=== PATIENT | female | born 1930 ===

== ENCOUNTER 2018-01-13 19:26 | Inpatient (IN) | payer MEDICAID, MEDICARE ==
[~2018-01-13] VITALS: Ht 165.1 cm; Wt 61.2 kg
[2018-01-13 20:28] LABS: BASOPHILS # (AUTO) 0.1 K/uL (0.0-8.0); BASOPHILS % (AUTO) 0.5 % (0.0-2.0); EOSINOPHILS # (AUTO) 0.1 K/uL (0.0-0.7); EOSINOPHILS % (AUTO) 0.6 % (0.0-7.0); HEMATOCRIT 34.2 % (31.2-41.9); HEMOGLOBIN 11.3 g/dL (10.9-14.3); LYMPHOCYTES # (AUTO) 1.2 K/uL (20.0-40.0); LYMPHOCYTES % (AUTO) 6.3 % (20.5-51.5); MEAN CORPUSCULAR HEMOGLOBIN 29.1 uug (24.7-32.8); MEAN CORPUSCULAR HGB CONC 33 g/dL (32.3-35.6); MEAN CORPUSCULAR VOLUME 88.4 fL (75.5-95.3); MONOCYTES # (AUTO) 1.1 K/uL (2.0-10.0); MONOCYTES % (AUTO) 6.1 % (0.0-11.0); NEUTROPHILS % (AUTO) 86.5 % (38.5-71.5); PLATELET COUNT (AUTO) 125 K/uL (179-408); RED BLOOD CELL COUNT(AUTO) 3.87 MIL/uL (3.63-4.92); WHITE BLOOD COUNT (AUTO) 18.5 K/uL (3.8-11.8)
[2018-01-13 20:34] LABS: CARBON DIOXIDE 29 mmol/L (21-32); CHLORIDE 109 mmol/L (98-107); CREATININE 0.6 mg/dL (0.6-1.3); GLUCOSE 148 mg/dL (74-106); POTASSIUM 3.5 mmol/L (3.5-5.1); UREA NITROGEN, BLOOD 23 mg/dL (7-18)
[2018-01-13 20:40] LABS: ALANINE AMINOTRANSFERASE 10 U/L (14-59); ALKALINE PHOSPHATASE 74 U/L (50-136); ASPARTATE AMINOTRANSFERASE 12 U/L (15-37); BILIRUBIN,DIRECT 0.1 mg/dL (0.0-0.2); BILIRUBIN,TOTAL 0.3 mg/dL (0.2-1.0); TOTAL PROTEIN, SERUM 4.5 g/dL (6.4-8.2)
[2018-01-13 20:59] LABS: *BILIRUBIN,URIN NEGATIVE (NEGATIVE); *BLOOD, URINE 2+ (NEGATIVE); *COLOR,URINE DARK YELLOW (YELLOW); *KETONES,URINE NEGATIVE (NEGATIVE); *PROTEIN,URINE 2+ (NEGATIVE); *UROBILINOGEN,URINE 0.2 E.U./dl (NORMAL); LEUKOCYTE ESTERASE ,URINE 1+ (NEGATIVE); NITRITE, URINE POSITIVE (NEGATIVE); UGLUCOSE NEGATIVE (NEGATIVE)
[2018-01-13 21:01] LABS: BAND % (MANUAL) 6 % (0-10); LYMPHOCYTES % (MANUAL) 5 % (20-40); MONOCYTES % (MANUAL) 5 % (2-10); NEUTROPHILS % (MANUAL) 82 % (42-75)
[2018-01-13 21:02] LABS: EOSINOPHILS % (MANUAL) 1 % (0-8); METAMYELOCYTES % 1 % (0-1)
[2018-01-13 21:09] LABS: *CLARITY,URINE CLOUDY (CLEAR)
[2018-01-13 21:10] LABS: BACTERIA,URINE FEW /HPF (NONE SEEN); SQUAMOUS EPITHELIAL CELL,UR FEW /HPF (NONE SEEN); WBC,URINE 50-80 /HPF (0-3); YEAST,URINE MANY /HPF (NONE SEEN)
[2018-01-13 21:11] LABS: CALCIUM OXALATE CRYSTALS,UR MODERATE /HPF (NONE SEEN)
[2018-01-13 21:12] LABS: MUCUS,URINE MODERATE /LPF (0-FEW)
[2018-01-13] MEDS ORDERED: IV NORMAL SALINE 1000 ML BAG IV ONE (21:15)
[2018-01-13] MEDS ORDERED: ALBU2.5V13 IH (21:15)
[2018-01-13] MEDS ORDERED: DIGO125T5 PO (21:15)
[2018-01-13] MEDS ORDERED: RIVA10TA PO (21:15)
[2018-01-13] MEDS ORDERED: PANT40TA4 PO (21:15)
[2018-01-13] MEDS ORDERED: IPRA0.2S6 NEB (21:15)
[2018-01-13] MEDS ORDERED: VANC125C4 PO (21:15)
[2018-01-13 21:28] LABS: ABG BASE EXCESS 1.9 mmol/L; ABG HCO3 26.5 mmol/L; ABG PCO2 41.2 mmHg (35.0-45.0); ABG PH 7.426 (7.350-7.450); ABG PO2 49.5 mmHg (75.0-100.0); ABG SITE LEFT RADIAL; ABG TOTAL HEMOGLOBIN 12.1 G/dL (12.0-16.0); COHb 1.2 % (0.5-1.5); MetHb 0.2 % (0.0-1.5); O2Hb 86.3 % (94.0-97.0); VENT MODE Room Air
[2018-01-13] MEDS ORDERED: CEFTRIAXONE 1 G VIAL ONE (21:29)
[2018-01-13] MEDS ORDERED: CEFTRIAXONE 2 G in IV DEXTROSE 5% 100 ML IV ONE (21:30)
[2018-01-13] MEDS ORDERED: MULT1TAB73 PO (21:53)
[2018-01-13] MEDS ORDERED: ASCO500C18 PO (21:53)
[2018-01-13] MEDS ORDERED: CRAN425C6 PO (21:53)
[2018-01-13] MEDS ORDERED: ZINC220C8 PO (21:53)
[2018-01-13] MEDS ORDERED: prostat PO (21:53)
[2018-01-13] MEDS ORDERED: ACET325T53 PO (21:53)
[2018-01-13] MEDS ORDERED: METR500P4 IV (23:06)
[2018-01-13] MEDS ORDERED: HYDROCODONE/APAP 5-325MG TABLET PO PRN (23:15)
[2018-01-13] MEDS ORDERED: ACETAMINOPHEN 325 MG TABLET PO PRN (23:15)
[2018-01-13] MEDS ORDERED: MAGNESIUM HYDROXIDE 30 ML LIQUID UDC PO PRN (23:15)
[2018-01-13] MEDS ORDERED: ZOLPIDEM 5 MG TABLET PO PRN (23:15)
[2018-01-13] MEDS ORDERED: ONDANSETRON 4 MG/2 ML VIAL IV PRN (23:15)
[2018-01-13] MEDS ORDERED: FUROSEMIDE 40 MG/4 ML VIAL IV ONE (23:45)
[2018-01-14] MEDS: ALBUTEROL SULFATE 2.5 MG/ 0.5 ML NEBU IH SCH ×7 (00:35→23:02)
[2018-01-14] MEDS: IPRATROPIUM BROMIDE 0.5 MG/2.5 ML NEBU NEB SCH ×7 (00:35→23:01)
[2018-01-14 00:36] VITALS: BP 148/64
[2018-01-14] MEDS ORDERED: METRONIDAZOLE 500 MG/NS 100ML 100 ML IV ONE (00:50)
[2018-01-14 04:56] LABS: BASOPHILS # (AUTO) 0.1 K/uL (0.0-8.0); BASOPHILS % (AUTO) 0.3 % (0.0-2.0); EOSINOPHILS # (AUTO) 0.2 K/uL (0.0-0.7); EOSINOPHILS % (AUTO) 0.9 % (0.0-7.0); HEMATOCRIT 37.1 % (31.2-41.9); HEMOGLOBIN 11.9 g/dL (10.9-14.3); LYMPHOCYTES # (AUTO) 1.4 K/uL (20.0-40.0); LYMPHOCYTES % (AUTO) 7.1 % (20.5-51.5); MEAN CORPUSCULAR HEMOGLOBIN 28.7 uug (24.7-32.8); MEAN CORPUSCULAR HGB CONC 32 g/dL (32.3-35.6); MEAN CORPUSCULAR VOLUME 89.2 fL (75.5-95.3); MONOCYTES # (AUTO) 1.1 K/uL (2.0-10.0); MONOCYTES % (AUTO) 5.7 % (0.0-11.0); PLATELET COUNT (AUTO) 105 K/uL (179-408); RED BLOOD CELL COUNT(AUTO) 4.15 MIL/uL (3.63-4.92); WHITE BLOOD COUNT (AUTO) 19.7 K/uL (3.8-11.8)
[2018-01-14 05:05] VITALS: BP 158/55
[2018-01-14] MEDS: METRONIDAZOLE 500 MG/NS 100ML 500 MG in PREMIXED 1 EACH IV SCH ×3 (05:15→21:01)
[2018-01-14] MEDS: VANCOMYCIN FOR PO/GT/NG USE PO SCH ×5 (05:47→23:11)
[2018-01-14] MEDS ORDERED: METRONIDAZOLE 500 MG/NS 100 ML PIGGYBACK IV SCH (06:00)
[2018-01-14 06:11] LABS: ABG BASE EXCESS 2.2 mmol/L; ABG HCO3 27.1 mmol/L; ABG PCO2 43.1 mmHg (35.0-45.0); ABG PH 7.416 (7.350-7.450); ABG PO2 72.2 mmHg (75.0-100.0); ABG SITE LEFT RADIAL; ABG TOTAL HEMOGLOBIN 11.5 G/dL (12.0-16.0); COHb 1.4 % (0.5-1.5); MetHb 0.2 % (0.0-1.5); VENT MODE Nasal Cannula
[2018-01-14 07:42] LABS: CARBON DIOXIDE 26 mmol/L (21-32); CHLORIDE 108 mmol/L (98-107); CHOLESTEROL 89 mg/dL (<200); CREATININE 0.5 mg/dL (0.6-1.3); GLUCOSE 103 mg/dL (74-106); HDL CHOLESTEROL 45 mg/dL (40-60); PHOSPHOROUS 1.7 mg/dL (2.5-4.9); POTASSIUM 3.5 mmol/L (3.5-5.1); TRIGLYCERIDES 51 MG/DL (30-150); UREA NITROGEN, BLOOD 20 mg/dL (7-18)
[2018-01-14] MEDS ORDERED: DIGOXIN 125 MCG TABLET PO SCH (09:00)
[2018-01-14] MEDS ORDERED: PANTOPRAZOLE SODIUM 40 MG TABLET.DR PO SCH (09:00)
[2018-01-14] MEDS ORDERED: PANTOPRAZOLE SODIUM 40 MG VIAL IV SCH (09:00)
[2018-01-14] MEDS ORDERED: RIVAROXABAN 10 MG TABLET PO SCH (09:00)
[2018-01-14] MEDS: ASCORBIC ACID 500 MG TABLET PO SCH (09:19)
[2018-01-14] MEDS: MULTIVITAMINS,THERAPEUTIC TABLET PO SCH (09:19)
[2018-01-14] MEDS: ZINC SULFATE 220 MG CAPSULE PO SCH (09:20)
[2018-01-14] MEDS: Z GUARD REMEDY PASTE 57 GM TUBE TOP PRN (09:21)
[2018-01-14 11:12] VITALS: BP 148/61
[2018-01-14] MEDS ORDERED: MAGNESIUM SULFATE/D5W 100 ML IV SCH (11:15)
[2018-01-14] MEDS: NEUTRA PHOS PACKET PO SCH ×2 (12:15→17:15)
[2018-01-14 15:32] VITALS: BP 164/52
[2018-01-14] MEDS: AMIODARONE HCL 200 MG TABLET PO SCH (17:14)
[2018-01-14] MEDS: RIVAROXABAN 10 MG TABLET PO SCH (18:05)
[2018-01-14] MEDS: ALBUMIN HUMAN 25% 25 GM in PREMIXED 1 EACH IV SCH ×2 (18:06→23:13)
[2018-01-14] MEDS: CEFTRIAXONE 1 G in IV DEXTROSE 5% 50 ML IV SCH (20:17)
[2018-01-14] MEDS: NYSTATIN POWDER 15 GM BOTTLE TOP SCH (20:40)
[2018-01-14] MEDS ORDERED: FUROSEMIDE 20 MG/2 ML VIAL IV SCH (21:00)
[2018-01-14 21:08] VITALS: BP 137/61
[2018-01-15] MEDS: IPRATROPIUM BROMIDE 0.5 MG/2.5 ML NEBU NEB SCH ×6 (03:02→23:37)
[2018-01-15] MEDS: ALBUTEROL SULFATE 2.5 MG/ 0.5 ML NEBU IH SCH ×6 (03:02→23:37)
[2018-01-15] MEDS: METRONIDAZOLE 500 MG/NS 100ML 500 MG in PREMIXED 1 EACH IV SCH ×3 (05:00→21:54)
[2018-01-15] MEDS: VANCOMYCIN FOR PO/GT/NG USE PO SCH ×3 (05:01→17:11)
[2018-01-15] MEDS: ALBUMIN HUMAN 25% 25 GM in PREMIXED 1 EACH IV SCH ×2 (05:44→11:58)
[2018-01-15 05:58] VITALS: BP 140/56
[2018-01-15 06:39] LABS: BASOPHILS % (AUTO) 0.1 % (0.0-2.0); EOSINOPHILS # (AUTO) 0.1 K/uL (0.0-0.7); EOSINOPHILS % (AUTO) 1.1 % (0.0-7.0); LYMPHOCYTES # (AUTO) 0.8 K/uL (20.0-40.0); LYMPHOCYTES % (AUTO) 6.7 % (20.5-51.5); MEAN CORPUSCULAR HEMOGLOBIN 29.3 uug (24.7-32.8); MEAN CORPUSCULAR HGB CONC 32 g/dL (32.3-35.6); MEAN CORPUSCULAR VOLUME 90.5 fL (75.5-95.3); MONOCYTES # (AUTO) 0.7 K/uL (2.0-10.0); MONOCYTES % (AUTO) 6.1 % (0.0-11.0); NEUTROPHILS # (AUTO) 9.6 K/uL (1.8-8.9); PLATELET COUNT (AUTO) 110 K/uL (179-408); RED BLOOD CELL COUNT(AUTO) 3.06 MIL/uL (3.63-4.92)
[2018-01-15 07:02] LABS: CARBON DIOXIDE 30 mmol/L (21-32); CHLORIDE 111 mmol/L (98-107); CREATININE 0.4 mg/dL (0.6-1.3); GLUCOSE 96 mg/dL (74-106); MAGNESIUM 1.8 mg/dL (1.8-2.4); PHOSPHOROUS 2.5 mg/dL (2.5-4.9); POTASSIUM 3.2 mmol/L (3.5-5.1); UREA NITROGEN, BLOOD 18 mg/dL (7-18)
[2018-01-15 07:06] LABS: THYROID STIMULATING HORMONE 2.412 mIU/mL (0.358-3.740)
[2018-01-15 07:21] LABS: HEMATOCRIT 27.7 % (31.2-41.9); WHITE BLOOD COUNT (AUTO) 11.2 K/uL (3.8-11.8)
[2018-01-15] MEDS ORDERED: POTASSIUM CHLORIDE 20 MEQ POWDER PACKET PO ONE (08:15)
[2018-01-15] MEDS: MULTIVITAMINS,THERAPEUTIC TABLET PO SCH (08:59)
[2018-01-15] MEDS: ZINC SULFATE 220 MG CAPSULE PO SCH (08:59)
[2018-01-15] MEDS: NEUTRA PHOS PACKET PO SCH ×2 (08:59→12:10)
[2018-01-15] MEDS: ASCORBIC ACID 500 MG TABLET PO SCH (08:59)
[2018-01-15] MEDS: PANTOPRAZOLE SODIUM 40 MG TABLET.DR PO SCH (08:59)
[2018-01-15] MEDS: AMIODARONE HCL 200 MG TABLET PO SCH (09:00)
[2018-01-15] MEDS: MAGNESIUM SULFATE/D5W 100 ML IV SCH ×2 (09:05→10:44)
[2018-01-15] MEDS: POTASSIUM CHLORIDE 50 ML IV SCH ×2 (09:05→10:45)
[2018-01-15] MEDS: Z GUARD REMEDY PASTE 57 GM TUBE TOP PRN (09:44)
[2018-01-15 10:04] LABS: BASOPHILS % (AUTO) 0.1 % (0.0-2.0); EOSINOPHILS # (AUTO) 0.1 K/uL (0.0-0.7); HEMATOCRIT 28.1 % (31.2-41.9); HEMOGLOBIN 9.1 g/dL (10.9-14.3); LYMPHOCYTES % (AUTO) 7.3 % (20.5-51.5); MEAN CORPUSCULAR HEMOGLOBIN 29.3 uug (24.7-32.8); MEAN CORPUSCULAR HGB CONC 32 g/dL (32.3-35.6); MEAN CORPUSCULAR VOLUME 90.8 fL (75.5-95.3); MONOCYTES # (AUTO) 0.8 K/uL (2.0-10.0); MONOCYTES % (AUTO) 5.9 % (0.0-11.0); NEUTROPHILS # (AUTO) 11.3 K/uL (1.8-8.9); NEUTROPHILS % (AUTO) 85.7 % (38.5-71.5); PLATELET COUNT (AUTO) 120 K/uL (179-408); RED BLOOD CELL COUNT(AUTO) 3.09 MIL/uL (3.63-4.92); WHITE BLOOD COUNT (AUTO) 13.1 K/uL (3.8-11.8)
[2018-01-15 10:14] LABS: CARBON DIOXIDE 30 mmol/L (21-32); CHLORIDE 109 mmol/L (98-107); CREATININE 0.4 mg/dL (0.6-1.3); GLUCOSE 125 mg/dL (74-106); POTASSIUM 3.3 mmol/L (3.5-5.1); UREA NITROGEN, BLOOD 17 mg/dL (7-18)
[2018-01-15] MEDS: NYSTATIN POWDER 15 GM BOTTLE TOP SCH ×2 (10:59→20:56)
[2018-01-15 11:08] VITALS: BP 125/99
[2018-01-15] MEDS ORDERED: BISACODYL 10 MG SUPP.RECT RC PRN (11:45)
[2018-01-15 11:59] LABS: BAND % (MANUAL) 3 % (0-10); LYMPHOCYTES % (MANUAL) 7 % (20-40); MONOCYTES % (MANUAL) 6 % (2-10); NEUTROPHILS % (MANUAL) 84 % (42-75)
[2018-01-15] MEDS: FUROSEMIDE 20 MG/2 ML VIAL IV SCH ×2 (12:09→20:56)
[2018-01-15] MEDS: FLUCONAZOLE 100 MG TABLET GT SCH (12:33)
[2018-01-15] MEDS: VANCOMYCIN IV 1,250 MG in IV DEXTROSE 5% 500 ML IV SCH (13:43)
[2018-01-15 15:15] VITALS: BP 122/59
[2018-01-15] MEDS: RIVAROXABAN 10 MG TABLET PO SCH (17:11)
[2018-01-15 20:41] VITALS: BP 132/57
[2018-01-15] MEDS: CEFTRIAXONE 1 G in IV DEXTROSE 5% 50 ML IV SCH (20:56)
[2018-01-16] MEDS: VANCOMYCIN FOR PO/GT/NG USE PO SCH ×4 (00:04→17:01)
[2018-01-16] MEDS: IPRATROPIUM BROMIDE 0.5 MG/2.5 ML NEBU NEB SCH ×6 (03:27→23:09)
[2018-01-16] MEDS: ALBUTEROL SULFATE 2.5 MG/ 0.5 ML NEBU IH SCH ×6 (03:27→23:10)
[2018-01-16] MEDS: FUROSEMIDE 20 MG/2 ML VIAL IV SCH ×3 (05:01→20:25)
[2018-01-16] MEDS: METRONIDAZOLE 500 MG/NS 100ML 500 MG in PREMIXED 1 EACH IV SCH ×3 (05:02→22:21)
[2018-01-16 05:20] VITALS: BP 141/54
[2018-01-16] MEDS: PANTOPRAZOLE SODIUM 40 MG TABLET.DR PO SCH (06:31)
[2018-01-16] MEDS: MULTIVITAMINS,THERAPEUTIC TABLET PO SCH (09:33)
[2018-01-16] MEDS: AMIODARONE HCL 200 MG TABLET PO SCH (09:33)
[2018-01-16] MEDS: ZINC SULFATE 220 MG CAPSULE PO SCH (09:33)
[2018-01-16] MEDS: FLUCONAZOLE 100 MG TABLET GT SCH (09:33)
[2018-01-16] MEDS: ASCORBIC ACID 500 MG TABLET PO SCH (09:34)
[2018-01-16] MEDS: NYSTATIN POWDER 15 GM BOTTLE TOP SCH (09:34)
[2018-01-16 10:54] VITALS: BP 124/57
[2018-01-16] MEDS: NYSTATIN/TRIAMCINOLONE CREAM 15 GM TUBE TOP SCH ×2 (14:44→20:25)
[2018-01-16] MEDS: VANCOMYCIN IV 1,250 MG in IV DEXTROSE 5% 500 ML IV SCH (15:05)
[2018-01-16 15:18] VITALS: BP 134/45
[2018-01-16] MEDS ORDERED: CLOTRIMAZOLE 1% CREAM 30 GM TUBE TOP SCH (17:00)
[2018-01-16] MEDS: RIVAROXABAN 10 MG TABLET PO SCH (17:02)
[2018-01-16 20:17] VITALS: BP 157/66
[2018-01-16] MEDS: CEFTRIAXONE 1 G in IV DEXTROSE 5% 50 ML IV SCH (20:25)
[2018-01-17] MEDS: VANCOMYCIN FOR PO/GT/NG USE PO SCH ×5 (00:24→23:28)
[2018-01-17] MEDS: IPRATROPIUM BROMIDE 0.5 MG/2.5 ML NEBU NEB SCH ×5 (03:00→21:26)
[2018-01-17] MEDS: ALBUTEROL SULFATE 2.5 MG/ 0.5 ML NEBU IH SCH ×5 (03:00→21:27)
[2018-01-17] MEDS: FUROSEMIDE 20 MG/2 ML VIAL IV SCH ×2 (04:36→12:42)
[2018-01-17] MEDS: METRONIDAZOLE 500 MG/NS 100ML 500 MG in PREMIXED 1 EACH IV SCH ×3 (05:38→21:08)
[2018-01-17] MEDS: PANTOPRAZOLE SODIUM 40 MG TABLET.DR PO SCH (06:07)
[2018-01-17 06:16] VITALS: BP 125/72
[2018-01-17 07:24] LABS: BASOPHILS % (AUTO) 0.2 % (0.0-2.0); EOSINOPHILS # (AUTO) 0.1 K/uL (0.0-0.7); EOSINOPHILS % (AUTO) 0.9 % (0.0-7.0); HEMATOCRIT 34.7 % (31.2-41.9); HEMOGLOBIN 11.5 g/dL (10.9-14.3); LYMPHOCYTES # (AUTO) 1.3 K/uL (20.0-40.0); LYMPHOCYTES % (AUTO) 10.3 % (20.5-51.5); MEAN CORPUSCULAR HEMOGLOBIN 29.8 uug (24.7-32.8); MEAN CORPUSCULAR HGB CONC 33 g/dL (32.3-35.6); MEAN CORPUSCULAR VOLUME 90.3 fL (75.5-95.3); MONOCYTES % (AUTO) 7.3 % (0.0-11.0); NEUTROPHILS # (AUTO) 10.6 K/uL (1.8-8.9); NEUTROPHILS % (AUTO) 81.3 % (38.5-71.5); PLATELET COUNT (AUTO) 150 K/uL (179-408); RED BLOOD CELL COUNT(AUTO) 3.85 MIL/uL (3.63-4.92); WHITE BLOOD COUNT (AUTO) 13.1 K/uL (3.8-11.8)
[2018-01-17 07:41] LABS: CARBON DIOXIDE 32 mmol/L (21-32); CHLORIDE 105 mmol/L (98-107); CREATININE 0.5 mg/dL (0.6-1.3); GLUCOSE 108 mg/dL (74-106); MAGNESIUM 1.6 mg/dL (1.8-2.4); PHOSPHOROUS 2.6 mg/dL (2.5-4.9); POTASSIUM 3.4 mmol/L (3.5-5.1); UREA NITROGEN, BLOOD 14 mg/dL (7-18)
[2018-01-17] MEDS: FLUCONAZOLE 100 MG TABLET GT SCH (08:02)
[2018-01-17] MEDS: MULTIVITAMINS,THERAPEUTIC TABLET PO SCH (08:02)
[2018-01-17] MEDS: ASCORBIC ACID 500 MG TABLET PO SCH (08:02)
[2018-01-17] MEDS: ZINC SULFATE 220 MG CAPSULE PO SCH (08:03)
[2018-01-17] MEDS: AMIODARONE HCL 200 MG TABLET PO SCH (08:08)
[2018-01-17] MEDS: NYSTATIN/TRIAMCINOLONE CREAM 15 GM TUBE TOP SCH ×2 (09:09→21:11)
[2018-01-17] MEDS ORDERED: POTASSIUM CHLORIDE 10 MEQ TAB.PRT.SR PO ONE (10:30)
[2018-01-17 11:11] VITALS: BP 111/57
[2018-01-17] MEDS: MAGNESIUM SULFATE/D5W 100 ML IV SCH ×2 (11:20→12:24)
[2018-01-17 15:03] VITALS: BP 110/62
[2018-01-17] MEDS: FUROSEMIDE 40 MG/4 ML VIAL IV SCH (17:16)
[2018-01-17] MEDS: VANCOMYCIN IV 1,250 MG in IV DEXTROSE 5% 500 ML IV SCH (17:17)
[2018-01-17] MEDS: RIVAROXABAN 10 MG TABLET PO SCH (17:17)
[2018-01-17 20:47] VITALS: BP 121/64
[2018-01-18] MEDS: ALBUTEROL SULFATE 2.5 MG/ 0.5 ML NEBU IH SCH ×5 (00:24→14:50)
[2018-01-18] MEDS: IPRATROPIUM BROMIDE 0.5 MG/2.5 ML NEBU NEB SCH ×5 (00:24→14:50)
[2018-01-18 04:46] VITALS: BP 120/60
[2018-01-18] MEDS: METRONIDAZOLE 500 MG/NS 100ML 500 MG in PREMIXED 1 EACH IV SCH (05:00)
[2018-01-18] MEDS: VANCOMYCIN FOR PO/GT/NG USE PO SCH (05:00)
[2018-01-18] MEDS: PANTOPRAZOLE SODIUM 40 MG TABLET.DR PO SCH (06:03)
[2018-01-18 06:28] LABS: BASOPHILS % (AUTO) 0.3 % (0.0-2.0); EOSINOPHILS # (AUTO) 0.1 K/uL (0.0-0.7); EOSINOPHILS % (AUTO) 1.1 % (0.0-7.0); HEMATOCRIT 31.3 % (31.2-41.9); HEMOGLOBIN 10.4 g/dL (10.9-14.3); LYMPHOCYTES # (AUTO) 1.2 K/uL (20.0-40.0); LYMPHOCYTES % (AUTO) 10.7 % (20.5-51.5); MEAN CORPUSCULAR HEMOGLOBIN 29.3 uug (24.7-32.8); MEAN CORPUSCULAR HGB CONC 33 g/dL (32.3-35.6); MEAN CORPUSCULAR VOLUME 88.7 fL (75.5-95.3); MONOCYTES # (AUTO) 1.2 K/uL (2.0-10.0); MONOCYTES % (AUTO) 10.9 % (0.0-11.0); NEUTROPHILS # (AUTO) 8.4 K/uL (1.8-8.9); PLATELET COUNT (AUTO) 133 K/uL (179-408); RED BLOOD CELL COUNT(AUTO) 3.53 MIL/uL (3.63-4.92)
[2018-01-18 06:38] LABS: CARBON DIOXIDE 34 mmol/L (21-32); CHLORIDE 106 mmol/L (98-107); CREATININE 0.5 mg/dL (0.6-1.3); GLUCOSE 114 mg/dL (74-106); MAGNESIUM 1.8 mg/dL (1.8-2.4); PHOSPHOROUS 2.2 mg/dL (2.5-4.9); POTASSIUM 3.4 mmol/L (3.5-5.1); UREA NITROGEN, BLOOD 14 mg/dL (7-18)
[2018-01-18] MEDS: MULTIVITAMINS,THERAPEUTIC TABLET PO SCH (08:22)
[2018-01-18] MEDS: ZINC SULFATE 220 MG CAPSULE PO SCH (08:22)
[2018-01-18] MEDS: ASCORBIC ACID 500 MG TABLET PO SCH (08:22)
[2018-01-18] MEDS: FUROSEMIDE 40 MG/4 ML VIAL IV SCH ×2 (08:22→17:39)
[2018-01-18] MEDS: NYSTATIN/TRIAMCINOLONE CREAM 15 GM TUBE TOP SCH (08:23)
[2018-01-18] MEDS: AMIODARONE HCL 200 MG TABLET PO SCH (08:23)
[2018-01-18] MEDS ORDERED: POTASSIUM PHOSPHATE MM 5 MMOL in IV DEXTROSE 5% 100 ML IV ONE (10:30)
[2018-01-18 11:10] VITALS: BP 111/90
[2018-01-18] MEDS ORDERED: POTASSIUM CHLORIDE 20 MEQ TAB.PRT.SR PO ONE (12:00)
[2018-01-18] MEDS ORDERED: NYST15CR15 TOP (14:00)
[2018-01-18] MEDS ORDERED: POTA-10 PO (14:00)
[2018-01-18] MEDS ORDERED: VANC500V PO (14:00)
[2018-01-18] MEDS ORDERED: FURO-151 PO (14:00)
[2018-01-18] MEDS ORDERED: AMIO200T6 PO (14:00)
[2018-01-18 15:02] VITALS: BP 124/94
[2018-01-18] MEDS ORDERED: VANC125C4 PO (15:04)
[2018-01-18] MEDS: RIVAROXABAN 10 MG TABLET PO SCH (17:40)
[2018-01-18] MEDS ORDERED: VANCOMYCIN FOR PO/GT/NG USE PO SCH (18:00)
== END 2018-01-18 19:04 | DRG 720 ==
LOC: ER 19:33 → TELE 23:06 → MED 01-14 15:55
PROVIDERS: ADMIT Hospitalist; ATTEND Hospitalist
DX: A41.89 Other specified sepsis (principal); J96.01 Acute respiratory failure with hypoxia; N17.0 Acute kidney failure with tubular necrosis; E43 Unspecified severe protein-calorie malnutrition; A04.72 Enterocolitis due to Clostridium difficile, not specified as recurrent; D69.6 Thrombocytopenia, unspecified; I50.33 Acute on chronic diastolic (congestive) heart failure; G92 Toxic encephalopathy; E83.39 Other disorders of phosphorus metabolism; B37.0 Candidal stomatitis; E83.42 Hypomagnesemia; I82.509 Chronic embolism and thrombosis of unspecified deep veins of unspecified lower extremity; B37.49 Other urogenital candidiasis; Z91.14 Patient's other noncompliance with medication regimen; Z79.01 Long term (current) use of anticoagulants; D63.8 Anemia in other chronic diseases classified elsewhere; I11.0 Hypertensive heart disease with heart failure; J98.11 Atelectasis; R60.1 Generalized edema; I70.0 Atherosclerosis of aorta; I48.0 Paroxysmal atrial fibrillation; I27.20 Pulmonary hypertension, unspecified; I08.3 Combined rheumatic disorders of mitral, aortic and tricuspid valves; F03.90 Unspecified dementia, unspecified severity, without behavioral disturbance, psychotic disturbance, mood disturbance, and anxiety; B35.6 Tinea cruris; M62.81 Muscle weakness (generalized); L30.4 Erythema intertrigo; Z90.49 Acquired absence of other specified parts of digestive tract
CPT/HCPCS: 36415; 36600; 70030-TC; 71045; 83605; 83735; 84100; 84443; 85025; 85730; 87040; 87070; 87086; 92523; 92610; 93005; 93307; 94640; 94664; 97110; 97530; A4663; G0378; J0696; J1940; J3370; J3475; J3480; J3490; J3590; J7040; J7060; P9047